=== PATIENT | male | born 1980 | race African-American/Black ===

== ENCOUNTER 2017-09-06 05:38 | Observation (INO) | payer OTHER ==
[2017-09-06] VITALS (7 sets, daily range): BP systolic 121–147; BP diastolic 70–86
[~2017-09-06] VITALS: Ht 172.7 cm; Wt 122.5 kg
[~2017-09-06 05:38] MED LIST: AMBIEN5 MG PO; IMITREX6 MG/0.51 SQ; NORCO 10-325 T1 EACH PO
[2017-09-06] MEDS ORDERED: LIDOCAINE 1% W/EPINEPHRINE 20 ML VIAL ONE (06:20)
--- NOTE | 2017-09-06 10:26 | Operative Report ---
DATE OF PROCEDURE: September 06, 2017 PREOPERATIVE DIAGNOSES 1. Right thyromegaly. 2. Multiple thyroid nodules (multinodular goiter). POSTOPERATIVE DIAGNOSES 1. Right thyromegaly. 2. Multiple thyroid nodules (multinodular goiter). PROCEDURE: Right thyroid lobectomy with nerve integrity monitor (NIM) endotracheal tube. SIGNIFICANT FINDINGS: Significantly enlarged right thyroid lobe. PROFESSOR OF ENGINEERING: Shanika Yee MD ANESTHESIA: General endotracheal tube anesthesia with NIM monitor ET tube. SPECIMEN REMOVED: Right thyroid lobe. ESTIMATED BLOOD LOSS: 50 mL. COMPLICATIONS: None. INDICATIONS: The patient is a 37-year-old male found to have enlarged thyroid gland during evaluation for URI symptoms at [facility] Emergency Room. CT neck in the emergency room revealed enlarged multinodular thyroid goiter with substernal extension causing leftward deviation of the trachea and mild narrowing of the tracheal lumen. Chest x-ray was normal. The patient believes that the mass is enlarging and has been present for 3 years. On examination, there is significant thyroid gland enlargement, significantly worse on the right. He is scheduled for a right thyroid lobectomy (possible total thyroidectomy) for the treatment of thyromegaly and multiple thyroid nodules. The risks and complications of the procedure were thoroughly discussed with the patient. They include: Infection; bleeding; scarring; failure to improve; need for additional operations; possibility of malignancy and need for further surgery and treatment; poor external cosmetic appearance of the incision; damage to the recurrent laryngeal nerve(s) causing unilateral or bilateral true vocal cord paralysis; damage to the parathyroid glands causing hypocalcemia and the permanent consequences of hypocalcemia; damage to the pharynx resulting in leakage of intraluminal contents into the neck and chest; need for blood transfusions; damage to surrounding nerves, blood vessels, and muscles; chronic pain. He fully understands and gives consent. PROCEDURE: The patient was taken to the operating room and placed supine on the operating table, where general anesthesia was achieved through endotracheal intubation with the NIM monitor ET tube. Following this, Ancef was administered. Injection with 6 mL of 1% lidocaine with 1:100,000 epinephrine was injected along a natural skin crease 2 fingerbreadths superior to the clavicles. The electrodes for the NIM monitor ET tube were then inserted and attached to the monitor. The neck was then prepped and draped in the usual sterile fashion. An 8-cm incision was then made along a natural skin crease in a horizontal fashion 2 fingerbreadths superior to the clavicles. The incision was made past the platysmal layer. Superior, lateral and inferior skin flaps were elevated. The Jorge self-retaining retractor was then inserted. The midline raphe, which was deviated to the left, was divided until the anterior surface of the isthmus was encountered. The strap muscles were elevated off the right thyroid lobe. Dissection was then performed atraumatically around the periphery of the right thyroid lobe. The inferior aspect of the right thyroid lobe was then retracted superiorly, revealing the area lateral to the trachea. In this area, the recurrent laryngeal nerve was identified and was traced superiorly. The superior pole was divided with the Harmonic scalpel. The recurrent laryngeal nerve was seen to be intact throughout the case as it entered the larynx inferior to the cricothyroid muscle. At least one parathyroid gland was identified and was left undisturbed. In this way, the right thyroid lobe was removed from its underlying attachments and was tethered to the left thyroid lobe only along its isthmus attachment. This was then divided and sent for frozen section analysis. The pathologist read the specimen out as grossly multinodular goiter. Hemostasis was then performed with judicious use of bipolar cautery, taking care to avoid any trauma to the recurrent laryngeal nerve or the parathyroid gland. The integrity of the right recurrent laryngeal nerve was seen to be intact at the end of the case by stimulation inferiorly. Following this, a DANIEL drain was then inserted through a separate stab incision lateral to the left edge of the incision. The midline raphe was then reconstituted with interrupted 4-0 Monocryl followed by repair of the skin incision with interrupted 4-0 Monocryl through the platysmal layer followed by interrupted 4-0 Monocryl in a subcuticular fashion. Dermabond was applied. The patient was awakened in the operating room, extubated and taken to the recovery room in good condition. Job#: [id number] ALYCIA CURRY
[2017-09-06] MEDS ORDERED: SUMATRIPTAN SUCCINATE 25 MG TAB PO SCH (10:45)
[2017-09-06] MEDS: LACTATED RINGER'S 1,000 ML IV SCH ×2 (11:56→19:41)
[2017-09-06] MEDS: HYDROCODONE/APAP 10MG-325MG TAB PO PRN ×2 (11:56→17:46)
[2017-09-06] MEDS: ONDANSETRON HCL INJ 2 MG/ML VIAL IV PRN ×2 (11:56→20:50)
[2017-09-06] MEDS: CEFAZOLIN SOD 1 GM VIAL IV SCH ×2 (13:33→21:59)
[2017-09-06] MEDS ORDERED: CEFAZOLIN SOD 1 GM in WATER STERILE 10ML VIAL 10 ML IV SCH (14:00)
[2017-09-06] MEDS: MORPHINE SULFATE 2 MG/ML SYR IV PRN ×2 (14:57→20:50)
[2017-09-06] MEDS ORDERED: ROCURONIUM BROMIDE 10 MG/ML 5ML VIAL ONE (18:40)
[2017-09-06] MEDS ORDERED: PROPOFOL IV EMULSION 10 MG/ML 20 ML VIAL ONE (18:40)
[2017-09-06] MEDS ORDERED: DEXAMETHASONE SOD PHOS INJ 4 MG/ML VIAL ONE (18:40)
[2017-09-06] MEDS ORDERED: LIDOCAINE HCL 2% LOCAL INJ 5 ML SDV VIAL INJ ONE (18:40)
[2017-09-06] MEDS ORDERED: DESFLURANE 240 ML BTL INH ONE (18:40)
[2017-09-06] MEDS ORDERED: SUCCINYLCHOLINE 200 MG/10 ML SYR ONE (18:40)
[2017-09-06] MEDS ORDERED: KETAMINE HCL INJ 50 MG/ML 10 ML VIAL ONE (18:55)
[2017-09-06] MEDS ORDERED: FENTANYL CITRATE/PF 100MCG/2 ML INJ ONE (18:55)
[2017-09-06] MEDS ORDERED: MIDAZOLAM HCL 2 MG/2 ML VIAL ONE (18:55)
[2017-09-06] MEDS ORDERED: TEMAZEPAM 15 MG CAP PO SCH (22:46)
[2017-09-07] VITALS: BP 124/56
[2017-09-07] MEDS: HYDROCODONE/APAP 10MG-325MG TAB PO PRN ×3 (02:23→10:12)
[2017-09-07 04:00] VITALS: BP 122/58
[2017-09-07] MEDS: LACTATED RINGER'S 1,000 ML IV SCH (04:11)
[2017-09-07] MEDS: CEFAZOLIN SOD 1 GM VIAL IV SCH (05:29)
[2017-09-07] MEDS ORDERED: ACETAMINOP325 MG/10 PO (09:40)
[2017-09-07] MEDS ORDERED: ACETAMINOPHEN650 MG RC (09:40)
[2017-09-07] MEDS ORDERED: ACETAMINOPHEN325 M1 PO (09:43)
[2017-09-07] MEDS ORDERED: TEMAZEPAM 15 MG CAP PO SCH (22:30)
== END 2017-09-07 10:30 | disposition home or self-care (01) ==
LOC: OR 05:38 → MED/SURG 10:24
PROVIDERS: ADMIT Otolaryngology; ATTEND Otolaryngology
DX: E04.2 Nontoxic multinodular goiter (principal)
CPT/HCPCS: 36415; 60220; 82948; 88307; 88331; G0378 ×2; J0690 ×2; J1100; J2001; J2250; J2270; J2405; J7120 ×2

== ENCOUNTER → 2018-06-05 | Outpatient (CLI) | payer OTHER ==
[~2018-06-05] MED LIST changes: +ACETAMINOP325 MG/10 PO; +ACETAMINOPHEN325 M1 PO; +ACETAMINOPHEN650 MG RC
--- NOTE | 2018-06-05 15:01 | Diagnostic Imaging Report ---
Exam: Brain MRI without IV contrast History: Chronic pain, headache Comparison studies: None Technique: Sagittal and axial T2 FS, axial DWI, axial T2*GRE, axial T1 FLAIR and axial coronal T2 FLAIR. Intravenous contrast: None Findings: Scalp: Normal in signal. No masses. Bone marrow: Normal in signal intensity. Brain sulci: Appropriate for age. Ventricles: Normal in size. No hydrocephalus. Extra axial spaces: No mass, no fluid collection. Parenchyma: No mass, hemorrhage, acute ischemia or chronic cortical vascular infarcts. A few scattered T2 FLAIR hyperintense in the supratentorial white matter (predominantly bifrontal) are nonspecific. No signal abnormalities identified within the corpus callosum, basal ganglia or in the posterior fossa. A 4 mm right frontal periventricular cyst may reflect incidental ependymal cyst and is without mass effect. Suprasellar region: No abnormalities. Craniocervical junction: Patent foramen magnum. No Chiari malformation. Vessels: Normal flow-voids in the arteries and sinuses. IMPRESSION: A few small foci of signal abnormality in the supratentorial white matter are nonspecific but may be migraine-related or reflect nonspecific chronic microvascular ischemic changes. Consider vasculitis or less likely demyelinating disease only in the appropriate clinical setting. Signed by: Dr. Michele Deluna M.D. on 06/05/2018 2:58 PM
== END ==
LOC: MRI 13:49
PROVIDERS: ATTEND Emergency Medicine
DX: G89.29 Other chronic pain (principal)
CPT/HCPCS: 70551